=== PATIENT | male | born 1995 | race Two or more races ===

== ENCOUNTER 2023-11-11 06:10 | Day surgery (SDC) | payer OTHER, SELFPAY ==
[2023-11-11] VITALS (9 sets, daily range): BP systolic 105–127; BP diastolic 50–80
[2023-11-11] MEDS: CELEBREX 200 MG PO (06:39)
[2023-11-11] MEDS: TYLENOL 1000 MG PO (06:39)
[2023-11-11] MEDS: NORMOSOL-R 1000 IV (06:40)
--- NOTE | 2023-11-11 08:03 | W.IMMPOSTOP ---
Surgical Immed Post Op Note
-
Primary Surgeon: Juanito Mccullough MD
Assisting Surgeon: resident Dashawn
Pre-op Diagnosis: Anal fissure
Post-op Diagnosis: Anal fissure
Procedure Performed: Exam under anesthesia, injection of Botox, pudendal nerve block
Anesthesia Type: Sedation with local
Specimen / Cultures: None
Estimated Blood Loss: 5 mL
Complications: None
Operative Findings: Per op note
--- NOTE | 2023-11-11 08:11 | OR.RPT ---
Operative Report
Operative Report
DATE OF OPERATION: 11/11/2023
SURGEON: Juanito Mccullough MD
PREOPERATIVE DIAGNOSIS: Anal fissure
POSTOPERATIVE DIAGNOSIS: Anal fissure
OPERATION: Exam under anesthesia, injection of botox into internal anal sphincter, bilateral pudendal nerve block
ASSISTANTS:
1. Dashawn March, resident
ANESTHESIA: MAC w/ local
ESTIMATED BLOOD LOSS: 5 mL
FINDINGS:
1. Anterior midline anal fissure, chronic�appearing, about 8 mm x 4 mm in size
2. Posterior midline anal fissure completely healed
SPECIMENS:
1. None
DRAINS: N/A
COMPLICATIONS: None
INDICATIONS: The patient is a 28-year-old male who presented to my office with a painful anal fissure. After a trial of nonoperative measures with nifedipine/lidocaine cream, the fissure did not resolve completely. Therefore, the patient was
recommended to have surgery. The operation was discussed with the patient in detail, including the risks, benefits and alternatives. Risks described included, but not limited to bleeding, infection, urinary retention, damage to nearby structures
such as the anal sphincter, fecal incontinence, recurrence, and anesthetic risks. The patient understood and agreed to proceed. The consent was signed and placed in the chart.
PROCEDURE IN DETAIL: The patient was taken to the operating room. The patient was then placed on the operating table in prone position. Sequential compression devices were placed bilaterally. Sedation was commenced without complication. Two seat
belts were secured around the legs and upper back. The buttocks were taped apart. The perineum was shaved, prepped and draped in the usual fashion. A time-out was then performed verifying the correct patient, procedure, operative site,
positioning, and special equipment.
Local anesthesia used was a mixture of 60 mL of 0.25% Marcaine epinephrine and 0.6 mg of dexamethasone. 40 mL was injected perianally at the beginning of the case. The anorectal exam was performed assessing all four quadrants of the anal canal
using Hill-Clinton retractors in progressively increasing size. The internal hemorrhoids were not enlarged and were normal-appearing. There was no concerning anal canal pathology. There was a small, chronic-appearing, anal fissure in the
anterior midline at the anal verge. After exposing with the medium Hill�Clinton retractor, the anal fissure measured 8 mm in length and 4 mm wide. There was no associated skin tag or anal papilla. The fissure was flat without any raised edges.
The internal sphincter was noted to be hypertonic, but somewhat improved from my initial exam. I determined the best course of action was to move forward with botox due to his smoldering course.
100 units of Botox was drawn up with 2 mL of sterile saline. Using a 30-gauge needle, the Botox was injected in 4 quadrants in equal portions, specifically 25 units in the anterior midline, right lateral quadrant, posterior midline and left lateral
quadrant. Care was taken to avoid incidental injection into the external sphincter. Hemostasis was achieved. The remaining 20 mL of local were injected. 5 mL was injected bilaterally for a pudendal nerve block. 10 mL was injected around the
surgical site and perianally. Hemostasis was reassessed once more using the small Hill-Clinton and was confirmed.
At this point, the procedure was complete. All needle, sponge and instrument counts were correct. The patient tolerated the procedure well and was transferred to the recovery room in stable condition with gauze dressing in place secured with silk
tape.
During the procedure, Dashawn, the resident, was necessary for traction, countertraction and exploratory purposes. I was present during the entire duration of the case.
DICTATED BY: Juanito Mccullough MD
== END 2023-11-11 09:40 | disposition home or self-care (01) ==
LOC: SDS 06:10
PROVIDERS: ATTENDING PHYSICIAN Surgery
DX: K60.2 Anal fissure, unspecified (principal); K64.8 Other hemorrhoids
CPT/HCPCS: 46505; J0585